=== PATIENT | male | born 1965 | race Caucasian/White ===

== ENCOUNTER → 2019-11-19 07:57 | Outpatient (BNVA) | payer OTHER, SELFPAY | PROVIDERS: Family Provider Family Medicine; PCP Family Medicine; Visit Provider Anesthesiology | DX: M51.37 Other intervertebral disc degeneration, lumbosacral region (principal); M79.651 Pain in right thigh; F17.210 Nicotine dependence, cigarettes, uncomplicated; Z79.891 Long term (current) use of opiate analgesic; Z71.6 Tobacco abuse counseling | CPT/HCPCS: 99214 ==

== ENCOUNTER → 2020-03-15 08:23 | Outpatient (BNVA) | payer OTHER, SELFPAY | PROVIDERS: Family Provider Family Medicine; PCP Nurse Practitioner Family; Visit Provider Anesthesiology | DX: G89.29 Other chronic pain (principal); M54.42 Lumbago with sciatica, left side; M51.37 Other intervertebral disc degeneration, lumbosacral region; F17.210 Nicotine dependence, cigarettes, uncomplicated; Z79.891 Long term (current) use of opiate analgesic | CPT/HCPCS: 99213; 99214 ==

== ENCOUNTER → 2020-05-12 07:50 | Outpatient (BNVA) | payer OTHER, SELFPAY | PROVIDERS: Family Provider Family Medicine; PCP Nurse Practitioner Family; Visit Provider Anesthesiology | DX: G89.29 Other chronic pain (principal); M51.37 Other intervertebral disc degeneration, lumbosacral region; F17.220 Nicotine dependence, chewing tobacco, uncomplicated; Z79.891 Long term (current) use of opiate analgesic; Z71.6 Tobacco abuse counseling | CPT/HCPCS: 99214 ==

== ENCOUNTER → 2020-07-14 08:14 | Outpatient (BNVA) | payer OTHER, SELFPAY | PROVIDERS: Family Provider Family Medicine; PCP Nurse Practitioner Family; Visit Provider Anesthesiology | DX: G89.29 Other chronic pain (principal); M51.37 Other intervertebral disc degeneration, lumbosacral region; F17.210 Nicotine dependence, cigarettes, uncomplicated; Z79.891 Long term (current) use of opiate analgesic | CPT/HCPCS: 99212; 99213; 99214 ==

== ENCOUNTER 2020-09-05 10:17 | Outpatient (CLI) | payer OTHER, SELFPAY ==
[2020-09-05 11:04] LABS: Alanine Aminotransferase 30 U/L (0-41); Albumin Level 4.2 g/dL (3.5-5.2); Alkaline Phosphatase 122 IU/L (40-130); Anion Gap 14.3 (5-19); Aspartate Amino Transferase 22 U/L (0-40); Blood Urea Nitrogen 11 mg/dL (6-20); Calcium 9.2 mg/dL (8.5-10.5); Carbon Dioxide 25 mmol/L (22-29); Chloride 101 mmol/L (98-107); Globulin 2.9 g/dL (1.3-4.6); Glomerular Filtration Rate 88.3 mL/min (90-130); Glucose 116 mg/dL (65-115); Osmolality Calculated 282 mOsm/kg (285-295); Potassium 4.3 mmol/L (3.5-5.1); Sodium 136 mmol/L (136-145); Total Bilirubin 0.3 mg/dL (0.15-1.2); Total Protein 7.1 g/dL (6.6-8.7)
== END 2020-09-05 10:18 | disposition home or self-care (01) ==
LOC: LAB 10:19
PROVIDERS: Family Provider Family Medicine; PCP Nurse Practitioner Family; Visit Provider Anesthesiology
DX: Z79.1 Long term (current) use of non-steroidal anti-inflammatories (NSAID) (principal)
CPT/HCPCS: 80053

== ENCOUNTER → 2020-09-08 08:18 | Outpatient (BNVA) | payer OTHER, SELFPAY | PROVIDERS: Family Provider Family Medicine; PCP Nurse Practitioner Family; Visit Provider Anesthesiology | DX: G89.29 Other chronic pain (principal); M25.552 Pain in left hip; M51.37 Other intervertebral disc degeneration, lumbosacral region; F17.210 Nicotine dependence, cigarettes, uncomplicated; Z79.891 Long term (current) use of opiate analgesic | CPT/HCPCS: 99212; 99214 ==

== ENCOUNTER → 2020-11-10 07:59 | Outpatient (BNVA) | payer OTHER, SELFPAY | PROVIDERS: Family Provider Family Medicine; PCP Nurse Practitioner Family; Visit Provider Anesthesiology | DX: G89.29 Other chronic pain (principal); M51.37 Other intervertebral disc degeneration, lumbosacral region; M54.42 Lumbago with sciatica, left side; F17.210 Nicotine dependence, cigarettes, uncomplicated; Z79.891 Long term (current) use of opiate analgesic; Z79.1 Long term (current) use of non-steroidal anti-inflammatories (NSAID) | CPT/HCPCS: 99213 ==

== ENCOUNTER → 2021-01-05 08:24 | Outpatient (BNVA) | payer OTHER, SELFPAY | PROVIDERS: Family Provider Family Medicine; PCP Nurse Practitioner Family; Visit Provider Anesthesiology | DX: G89.29 Other chronic pain (principal); M51.37 Other intervertebral disc degeneration, lumbosacral region; F17.210 Nicotine dependence, cigarettes, uncomplicated; Z79.891 Long term (current) use of opiate analgesic | CPT/HCPCS: 99213 ==

== ENCOUNTER → 2021-03-09 08:10 | Outpatient (BNVA) | payer OTHER, SELFPAY | PROVIDERS: Family Provider Family Medicine; PCP Nurse Practitioner Family; Visit Provider Anesthesiology | DX: G89.29 Other chronic pain (principal); M51.37 Other intervertebral disc degeneration, lumbosacral region; F17.210 Nicotine dependence, cigarettes, uncomplicated; F17.220 Nicotine dependence, chewing tobacco, uncomplicated; Z79.1 Long term (current) use of non-steroidal anti-inflammatories (NSAID); Z79.891 Long term (current) use of opiate analgesic | CPT/HCPCS: 99213 ==

== ENCOUNTER → 2021-05-04 12:46 | Outpatient (BNVA) | payer OTHER, SELFPAY | PROVIDERS: Family Provider Family Medicine; PCP Nurse Practitioner Family; Visit Provider Anesthesiology | DX: G89.29 Other chronic pain (principal); M54.42 Lumbago with sciatica, left side; M51.37 Other intervertebral disc degeneration, lumbosacral region; F17.210 Nicotine dependence, cigarettes, uncomplicated; Z79.891 Long term (current) use of opiate analgesic | CPT/HCPCS: 99213 ==

== ENCOUNTER 2021-05-24 11:30 | Outpatient (CLI) | payer OTHER, SELFPAY ==
--- NOTE | 2021-05-24 11:45 | MR_ITS ---
WS: [id number] MRI LUMBAR SPINE NONCONTRAST HISTORY: M51.37 - Other intervertebral disc degeneration, lumbosacral spine. COMPARISON: 02/07/2017 TECHNIQUE: Sagittal and axial multisequence imaging is submitted. Normal lumbar alignment with no compression fractures or marrow edema. Vertebral body heights are normal. Disc spaces are fairly mildly narrowed and desiccated. No obvious progression since the prior exam. Conus terminates normally at L1-2 disc level. L1-L2: No stenosis. Annular tear in the disc in the LEFT foramen. L2-L3: Mild annular disc bulge with a central disc protrusion. Very tiny central disc protrusion. Sli ght encroachment upon the ventral thecal sac and LEFT subarticular recess. No high-grade stenosis. L3-L4: Very slight asymmetric disc bulging extending greatest to the LEFT. LEFT paracentral disc prot rusion contacts the L4 nerve root. There is slight displacement of the L4 nerve root posteriorly. L4-L5: Mild disc bulging with bilateral facet joint arthritis and ligamentum flavum hypertrophy. Disc and osteophyte encroachment into the LEFT subarticular recess causing moderate stenosis. Mild progre ssion since the prior study from 2016. No central stenosis. Nerve roots are slightly clumped within t he periphery of the thecal sac. L5-S1: Central disc protrusion and mild annular disc bulging and osteophytosis. No contact upon the n erve roots or significant stenosis. Similar to the prior exam. Mild ectasia aorta with no aneurysm. MR/MR lumbar spine wo con* [id number] IMPRESSION: 1. Moderate LEFT subarticular recess stenosis at L4-5 due to disc, osteophyte and facet disease. Mild progression since 2017. 2. LEFT paracentral disc protrusion at L3-4 contacts the L4 nerve root. Slight displacement posteriorly. 3. No high-grade central stenosis.
== END 2021-05-24 11:31 | disposition home or self-care (01) ==
LOC: RADSHAW 11:32
PROVIDERS: PCP Nurse Practitioner Family; Visit Provider Anesthesiology
DX: M51.37 Other intervertebral disc degeneration, lumbosacral region (principal); M51.26 Other intervertebral disc displacement, lumbar region; M25.78 Osteophyte, vertebrae
CPT/HCPCS: 72148

== ENCOUNTER → 2021-07-05 09:30 | Outpatient (BNVA) | payer OTHER, SELFPAY | PROVIDERS: PCP Nurse Practitioner Family; Visit Provider Anesthesiology | DX: G89.29 Other chronic pain (principal); M51.37 Other intervertebral disc degeneration, lumbosacral region; F17.210 Nicotine dependence, cigarettes, uncomplicated; Z79.891 Long term (current) use of opiate analgesic | CPT/HCPCS: 62323; J1040; J3490 ==

== ENCOUNTER → 2021-07-18 14:30 | Outpatient (BNVA) | payer OTHER, SELFPAY | PROVIDERS: PCP Nurse Practitioner Family; Visit Provider Anesthesiology | DX: G89.29 Other chronic pain (principal); M51.37 Other intervertebral disc degeneration, lumbosacral region; F17.210 Nicotine dependence, cigarettes, uncomplicated; Z79.1 Long term (current) use of non-steroidal anti-inflammatories (NSAID); Z79.891 Long term (current) use of opiate analgesic | CPT/HCPCS: 99213 ==

== ENCOUNTER 2022-08-29 20:22 | Emergency (ER) | payer OTHER, SELFPAY ==
[2022-08-29 20:30] VITALS: PULSE 91; RESP 16; TEMP 36.3; O2SAT 98
[2022-08-29 20:33] VITALS: BP 124/79
--- NOTE | 2022-08-29 20:45 | XRR_ITS ---
PROCEDURE INFORMATION: Exam: XR Chest Exam date and time: 08/29/2022 9:54 PM Age: 56 years old Clinical indication: Cough TECHNIQUE: Imaging protocol: Radiologic exam of the chest. Views: 1 view. COMPARISON: CR XR chest 2V* [id number] 07/22/2018 8:38 AM FINDINGS: Lungs: Calcified granuloma noted in the left lung base. No consolidation. Pleural spaces: No pleural effusion. No pneumothorax. Heart/Mediastinum: No cardiomegaly. Bones/joints: Visualized osseous structures are intact. XR/XR chest 1V portable [id number] IMPRESSION: No acute findings.
--- NOTE | 2022-08-29 20:51 | ECG_ITS ---
[facility] Test Date: 2022-08-29 Pat Name: Daniel Vivas Department: Room: Gender: Male Layer Out: : 1965 Requested By: Milli Wagner Order Number: [id number] Sabas MD: Diego Goodrich M.D. Measurements Intervals Dale Rate: 72 P: 55 MS: 190 QRS: 44 QRSD: 83 T: 5 QT: 380 QTc: 419 Interpretive Statements SINUS RHYTHM No previous ECG available for comparison Electronically Signed On 08-30-2022 11:09:58 RETAIL SERVICE SPECIALIST by Diego Goodrich M.D. [id number]
[2022-08-29] MEDS: ketorolac 30 mg/mL INJ 15 MG IVP (20:57)
[2022-08-29 21:13] LABS: Influenza A by IFA negative (Negative); Influenza B by IFA negative (Negative)
--- NOTE | 2022-08-29 21:13 | W.ED.COVID ---
HPI - COVID General: Chief Complaint: COVID symptoms Stated Complaint: Flu Like Symptoms Time Seen by Provider: 08/29/22 20:41 Source: patient Mode of arrival: ambulatory Limitations: no limitations Triage information: No fever, cough or shortness of breath. No known COVID + exposure last 14 days History of Present Illness: 56-year-old male states over the last 5 days he has been having a cough along with some congestion states he is also had some nausea mild headaches and also a loss of taste. He is concerned he may have influenza or COVID. He is well-appearing here no distress denies any worsening improving factors. COVID 19 common symptoms: positive non-productive cough, dyspnea, body aches, nausea and vomiting; negative headache(s) or throat pain COVID 19 other sytmptoms: negative chest pain COVID Results: SARS-CoV-2 Antigen (Rapid) negative (Negative) 08/29/22 21:29 Review of Systems Const: Reports: body aches Eyes: Denies: blurry vision or eye discomfort ENMT: Denies: throat pain or dental pain Card: Denies: chest pain Resp: Reports: dyspnea and non-productive cough GI: Reports: nausea and vomiting : Denies: dysuria Musc: Denies: neck pain or back pain Skin/Breast: Denies: rash Neuro: Denies: headache(s) Psych: Denies: depression Mike/Lymph: Denies: easy bruising All/Imm: Denies: urticaria PFSH ED PFSH: Medical History Chronic low back pain DDD (degenerative disc disease), lumbosacral Encounter for long-term (current) use of NSAIDs Encounter for long-term use of opiate analgesic Opioid contract exists Smokeless tobacco use Smoker Surgical History H/O hernia repair History of back surgery Family History Other Cancer Denies family history of Anesthesia complication Bleeding disorder Social History Alcohol intake: never History of recent travel: No Physical Exam Const: COMMON NORMALS: no acute distress, patient oriented x3 and healthy appearing HENMT: COMMON NORMALS: normocephalic and atraumatic HEAD & SCALP: normocephalic and atraumatic Eye: COMMON NORMALS: Equal, round and reactive pupils present and EOMs intact bilaterally PUPIL: Yes Equal, round and reactive pupils present Neck/C-Spine: COMMON NORMALS: full ROM and supple Chest: COMMONS NORMALS: normal inspection of the chest and normal palpation of entire chest wall Resp: COMMON NORMALS: normal respiratory effort, No retractions, No use of accessory muscles and clear to auscultation bilaterally AUSCULTATION: clear to auscultation bilaterally Cardio: COMMON NORMALS: regular rate, regular rhythm and No murmurs present (Cardio) RATE: regular rate RHYTHM: regular rhythm GI: COMMON NORMALS: Normal to inspection, nondistended, normoactive bowel sounds present, Soft to palpation, non-tender and no masses PALPATION: Yes Soft to palpation Extremity: COMMON NORMALS: normal to inspection and full ROM Neuro: COMMON NORMALS: patient oriented x3, moves all extremities and no focal motor deficits Psych: COMMON NORMALS: mental status grossly normal, Normal thought process present and cooperative THOUGHT PROCESS: Normal thought process present Skin: COMMON NORMALS: no rashes or lesions noted and no wounds GENERAL SKIN EXAM: no rashes or lesions noted Course Vital Signs: Vital signs: Vital Signs Temperature 97.4 F L 08/29/22 20:30 Pulse Rate 91 08/29/22 20:30 Respiratory Rate 16 08/29/22 20:30 Blood Pressure 124/79 08/29/22 20:33 Pulse Oximetry 98 08/29/22 20:30 Oxygen Delivery Me thod 08/29/22 20:53 MDM - COVID Medical Decision Making Patient presents here with likely upper respiratory infection or viral syndrome he is well-appearing here his blood work is normal x-ray is normal patient given Decadron here will prescribe Zofran for home he is to follow-up with PCP and return if worsening. Lab Data 08/29/22 21:20 08/29/22 21:20 Radiology Impressions Chest X-Ray 08/29/22 20:45 IMPRESSION: No acute findings. Laboratory Results WBC 10.1 10^3/uL (4.0-10.0) H 08/29/22 21:20 RBC 5.82 10^6/uL (4.1-5.3) H 08/29/22 21:20 Hgb 17.7 g/dL (11.7-16.6) H 08/29/22 21:20 Hct 53.2 % (42.0-52.0) H 08/29/22 21:20 MCV 91.4 fl (80-94) 08/29/22 21:20 MCH 30.4 pg (28.0-34.0) 08/29/22 21:20 MCHC 33.3 g/dL (30.0-36.0) 08/29/22 21:20 RDW 12.9 % (12.1-15.1) 08/29/22 21:20 Plt Count 223 10^3/cmm (130-400) 08/29/22 21:20 MPV 12.0 fL (7.4-10.4) H 08/29/22 21:20 Neut % (Auto) 69.8 % 08/29/22 21:20 Lymph % (Auto) 19.4 % 08/29/22 21:20 Toombs % (Auto) 8.9 % 08/29/22 21:20 Eos % (Auto) 0.9 % 08/29/22 21:20 Baso % (Auto) 0.4 % 08/29/22 21:20 Neut # (Auto) 7.04 10^3/uL (1.8-7.7) 08/29/22 21:20 Lymph # (Auto) 2.0 10^3/uL (0.8-4.8) 08/29/22 21:20 Toombs # (Auto) 0.9 10^3/uL (0.2-0.9) 08/29/22 21:20 Eos # (Auto) 0.1 10^3/uL (0.0-0.8) 08/29/22 21:20 Baso # (Auto) 0.0 10^3/uL (0.0-0.1) 08/29/22:20 Nucleated RBC % (auto) 0 % 08/29/22: Nucleated RBCs # 0.0 /100WBC 08/29/22 21:20 Sodium 135 mmol/L (136-145) L 08/29/22 21:20 Potassium 3.7 mmol/L (3.5-5.1) 08/29/22 21:20 Chloride 101 mmol/L (98-107) 08/29/22 21:20 Carbon Dioxide 20 mmol/L (22-29) L 08/29/22 21:20 Anion Gap 17.7 (5-19) 08/29/22 21:20 BUN 13 mg/dL (6-20) 08/29/22 21:20 Creatinine 0.8 mg/dL (0.7-1.2) 08/29/22 21:20 GFR Calculation 100.4 mL/min (90-130) 08/29/22 21:20 Glucose 122 mg/dL (65-115) H 08/29/22 21:20 Calculated Osmolality 281 mOsm/kg (285-295) L 08/29/22 21:20 Calcium 9.9 mg/dL (8.5-10.5) 08/29/22 21:20 Total Bilirubin 0.6 mg/dL (0.15-1.2) 08/29/22 21:20 AST 36 U/L (0-40) 08/29/22 21:20 ALT 51 U/L (0-41) H 08/29/22 21:20 Alkaline Phosphatase 118 U/L (40-130) 08/29/22 21:20 NT-Pro-B Natriuret Pep 159 pg/mL (0-125) H 08/29/22 21:20 Total Protein 8.2 g/dL (6.6-8.7) 08/29/22 21:20 Albumin 4.1 g/dL (3.5-5.2) 08/29/22 21:20 Globulin 4.1 g/dL (1.3-4.6) 08/29/22 21:20 Lipase 26 U/L (13-60) 08/29/22 21:20 Influenza Type A Ag negative (Negative) 08/29/22 20:48 Influenza Type B Ag negative (Negative) 08/29/22 20:48 SARS-CoV-2 Ag (Rapid) negative (Negative) 08/29/22 21:29 SARS-CoV-2 Antigen (Rapid) negative (Negative) 08/29/22 21:29 Discharge Plan Discharge Patient Disposition: Home Clinical Impression: Vomiting Upper respiratory infection Qualifiers: URI type: unspecified viral URI Qualified Code(s): J06.9 - Acute upper respiratory infection, unspecified Condition: Stable Prescriptions: New ondansetron 4 mg tablet,disintegrating 4 mg PO Q6H PRN (Reason: nausea and vomiting) Qty: 14 0RF No Action hydrocodone-acetaminophen 10-325 mg tablet 2 tab PO QID PRN (Reason: pain) 30 Days Qty: 240 0RF Rx Instructions: fill on or after 07/18/21 tizanidine 4 mg tablet 4 mg PO TID PRN (Reason: muscle spasticity) 30 Days Qty: 90 1RF celecoxib [Celebrex] 200 mg capsule 200 mg PO BID 30 Days Qty: 60 1RF pregabalin 100 mg capsule 100 mg PO TID 30 Days Qty: 90 1RF hydrocodone-acetaminophen 10-325 mg tablet 2 tab PO QID PRN (Reason: pain) 30 Days Qty: 240 0RF Rx Instructions: fill on or after 09/22/21 Discharge Orders: Discharge ED (Routine); Ordered 08/29/22 Ordered By: Milli Wagner Discharge Diet: Advance as tolerated Discharge Activity: Resume usual activity Patient Instructions: Upper Respiratory Infection (ED), Acute Nausea and Vomiting (ED) Coding Level of Care Code ED Civil Laboratory Technician for Chg Fwd Exam Comprehensive
[2022-08-29] MEDS: sodium chloride 0.9% 1,000 ML 999 ML IV (21:27)
[2022-08-29] MEDS: ondansetron 2 mg/ML SDV 2 mL 4 MG IVP (21:27)
[2022-08-29 21:31] LABS: Basophils % 0.4 %; Eosinophils # 0.1 10^3/uL (0.0-0.8); Eosinophils % 0.9 %; Hematocrit 53.2 % (42.0-52.0); Hemoglobin 17.7 g/dL (11.7-16.6); Lymphocytes % 19.4 %; Mean Corpuscular HGB Conc 33.3 g/dL (30.0-36.0); Mean Corpuscular Hemoglobin 30.4 pg (28.0-34.0); Mean Corpuscular Volume 91.4 fl (80-94); Monocytes # 0.9 10^3/uL (0.2-0.9); Monocytes % 8.9 %; Neutrophils # 7.04 10^3/uL (1.8-7.7); Neutrophils % 69.8 %; Nucleated Red Blood Cells % 0 %; Platelet Count 223 10^3/cmm (130-400); Red Blood Count 5.82 10^6/uL (4.1-5.3); Red Cell Distribution Width 12.9 % (12.1-15.1); White Blood Count 10.1 10^3/uL (4.0-10.0)
[2022-08-29 21:51] LABS: Alanine Aminotransferase 51 U/L (0-41); Albumin Level 4.1 g/dL (3.5-5.2); Alkaline Phosphatase 118 U/L (40-130); Anion Gap 17.7 (5-19); Aspartate Amino Transferase 36 U/L (0-40); Blood Urea Nitrogen 13 mg/dL (6-20); Calcium 9.9 mg/dL (8.5-10.5); Carbon Dioxide 20 mmol/L (22-29); Chloride 101 mmol/L (98-107); Globulin 4.1 g/dL (1.3-4.6); Glomerular Filtration Rate 100.4 mL/min (90-130); Glucose 122 mg/dL (65-115); Lipase 26 U/L (13-60); Osmolality Calculated 281 mOsm/kg (285-295); Potassium 3.7 mmol/L (3.5-5.1); Slide Review Slide Review Perform; Sodium 135 mmol/L (136-145); Total Bilirubin 0.6 mg/dL (0.15-1.2); Total Protein 8.2 g/dL (6.6-8.7)
[2022-08-29 21:58] LABS: NT Pro B Type Natriuretic Pept 159 pg/mL (0-125)
[2022-08-29 22:33] LABS: SARS Covid-2 Antigen negative (Negative)
[2022-08-29] MEDS: dexamethasone 10 mg/mL INJ IM (22:42)
[2022-08-29 23:18] VITALS: BP 130/80; PULSE 88; RESP 18; O2SAT 98
== END 2022-08-29 23:18 | disposition home or self-care (01) ==
PROVIDERS: Emergency Provider Emergency Medicine
DX: J06.9 Acute upper respiratory infection, unspecified (principal); R11.11 Vomiting without nausea; Z20.822 Contact with and (suspected) exposure to COVID-19
CPT/HCPCS: 71045; 80053; 83690; 83880; 85025; 87426; 87804; 93005; 96361; 96374; 96375; 99285; J1100; J1885; J2405; J7030

== ENCOUNTER 2023-12-23 07:29 | Outpatient (CLI) | payer OTHER, SELFPAY ==
--- NOTE | 2023-12-23 07:33 | MR_ITS ---
WS: [id number] MRI LEFT SHOULDER HISTORY: LEFT BICEPS TENDINITIS AT SHOULDER COMPARISON: None available. TECHNIQUE: Multiplanar sequences of the shoulder joint are submitted. Moderate AC joint arthritis. Narrowing of the AC joint. 5.8 mm osteophyte from the distal clavicle en croaches and contacts the myotendinous portion of the supraspinatus. There is a very small amount of fluid in the subdeltoid bursa. No os acromion. Biceps tendon in the bicipital groove is small caliber . Proximal to the bicipital groove increased T2 signal within the tendon versus fluid in the tendon s keila. No atrophy or edema within the rotator cuff muscles. 3 mm insertion site tear of the distal supraspin atus. There is additional more proximal tendinopathy. Mild fraying along both the articular and bursa l surfaces of the supraspinatus. Mild coracohumeral interval narrowing. Very slight surface fraying and intermediate signal within the superior labrum but no definite tear. No joint effusion. IMPRESSION: 1. Moderate AC joint arthritis. 2. 5.8 mm osteophyte from the distal clavicle with contact on the myotendinous portion of the supras pinatus. 3. Mild tendinopathy in the distal supraspinatus with a focal 3 mm insertion site tear. 4. Mild fraying intrasubstance degeneration superior labrum but no tear identified.
== END 2023-12-23 07:30 | disposition home or self-care (01) ==
LOC: RAD 07:30
PROVIDERS: Visit Provider Orthopaedic Surgery
DX: M75.22 Bicipital tendinitis, left shoulder (principal); M19.012 Primary osteoarthritis, left shoulder; M25.712 Osteophyte, left shoulder; M75.82 Other shoulder lesions, left shoulder
CPT/HCPCS: 73221

== ENCOUNTER 2025-01-07 11:10 | Outpatient (CLI) | payer OTHER, SELFPAY ==
--- NOTE | 2025-01-07 11:17 | XR_ITS ---
WS: [id number] XR chest 2V* [id number] REASON FOR EXAM: ACUTE URI FINDINGS: Compared to the previous examination of 08/29/2022. There appear to be increased reticular interstitial lung opacities in the right lower lung and the superior left lower lung. Chronicity unknown. The remainder of the chest is unchanged compared to the previous examination and without acute abnormality. XR/XR chest 2V* [id number] IMPRESSION: Reticular interstitial lung opacities of unknown chronicity in the right and le ft lung as above. Potentially could represent acute or subacute pneumonitis.
[2025-01-07 14:41] LABS: Adenovirus Not Detected (NOT DETECT); Chlamydia Pneumoniae Not Detected (NOT DETECT); Coronavirus 229E,HKU1,NL63,OC4 Not Detected (NOT DETECT); Human Metapneumovirus Not Detected (NOT DETECT); Human Rhinovirus/Enterovirus Not Detected (NOT DETECT); Influenza A Not Detected (NOT DETECT); Influenza A H1 Not Detected (NOT DETECT); Influenza A H1-2009 Not Detected (NOT DETECT); Influenza A H3 Not Detected (NOT DETECT); Influenza B Not Detected (NOT DETECT); Mycoplasma Pneumoniae Not Detected (NOT DETECT); Parainfluenza Virus Type 1 Not Detected (NOT DETECT); Parainfluenza Virus Type 2 Not Detected (NOT DETECT); Parainfluenza Virus Type 3 Not Detected (NOT DETECT); Parainfluenza Virus Type 4 Not Detected (NOT DETECT); Respiratory Syncytial Virus A Not Detected (NOT DETECT); Respiratory Syncytial Virus B Not Detected (NOT DETECT); SARS-COV-2 Not Detected (NOT DETECT)
== END 2025-01-07 11:11 | disposition home or self-care (01) ==
PROVIDERS: PCP Nurse Practitioner Family; Visit Provider Nurse Practitioner Family
DX: J06.9 Acute upper respiratory infection, unspecified (principal); R91.8 Other nonspecific abnormal finding of lung field
CPT/HCPCS: 71046; 87486; 87581; 87633